=== PATIENT | female | born 1995 | race Caucasian/White ===

== ENCOUNTER 2017-11-25 22:30 | Inpatient (IN) | payer BC ==
[~2017-11-25] VITALS: Ht 182.9 cm; Wt 121.1 kg
[2017-11-25] MEDS: D5 LR IV SOLUTION 1,000 ML IV SCH (23:30)
[2017-11-26] VITALS (56 sets, daily range): BP systolic 109–181; BP diastolic 53–91
[2017-11-26] MEDS ORDERED: diphenhydrAMINE 25 MG TAB (BENADRYL) PO PRN
[2017-11-26 00:05] LABS: BASOPHILS % (AUTO) 0 % (0-10); EOSINOPHILS # (AUTO) 0.3 10^3/uL (0.0-0.3); EOSINOPHILS % (AUTO) 3 % (0-10); HEMATOCRIT 33 % (35-52); LYMPHOCYTES # (AUTO) 2.1 X 10^3 (1.0-4.0); LYMPHOCYTES % (AUTO) 20 % (12-44); MEAN CORPUSCULAR HEMOGLOBIN 31 PG (25-34); MEAN CORPUSCULAR HGB CONC 34 G/DL (32-36); MEAN CORPUSCULAR VOLUME 93 FL (80-99); MEAN PLATELET VOLUME 11.6 FL (7.4-10.4); MONOCYTES # (AUTO) 0.8 X 10^3 (0.0-1.0); MONOCYTES % (AUTO) 8 % (0-12); NEUTROPHILS # (AUTO) 7.5 X 10^3 (1.8-7.8); NEUTROPHILS % (AUTO) 70 % (42-75); PLATELET COUNT 133 10^3/uL (130-400); RED CELL DISTRIBUTION WIDTH 14.6 % (10.0-14.5); WHITE BLOOD COUNT 10.7 10^3/uL (4.3-11.0)
--- OUTSIDE RECORDS SUMMARY | 2017-11-26 00:15 | XMS REPORT | Continuity of Care Document ---
Author Author [facility] Organization [facility] Address Unknown Phone Unavailable Allergies There is no data. Medications There is no data. Problems Date Dx Coded Attending Type Code Diagnosis Diagnosed By 10/05/2014 JAMES DIAZ WELLNESS PROGRAM MANAGER Ot 625.9 10/05/2014 JAMES DIAZ WELLNESS PROGRAM MANAGER Ot 240.9 11/06/2015 Ot 620.2 11/06/2015 Ot 789.04 Procedures There is no data. Results Test Result Range Complete blood count (CBC) with automated white blood cell (WBC) differential - 11/25/17 23:50 Blood leukocytes automated count (number/volume) 10.7 10*3/uL 4.3-11.0 Blood erythrocytes automated count (number/volume) 3.50 10*6/uL 4.35-5.85 Venous blood hemoglobin measurement (mass/volume) 11.0 g/dL 11.5-16.0 Blood hematocrit (volume fraction) 33 % 35-52 Automated erythrocyte mean corpuscular volume 93 [foz_us] 80-99 Automated erythrocyte mean corpuscular hemoglobin (mass per erythrocyte) 31 pg 25-34 Automated erythrocyte mean corpuscular hemoglobin concentration measurement ( mass/volume) 34 g/dL 32-36 Automated erythrocyte distribution width ratio 14.6 % 10.0-14.5 Automated blood platelet count (count/volume) 133 10*3/uL 130-400 Automated blood platelet mean volume measurement 11.6 [foz_us] 7.4-10.4 Automated blood neutrophils/100 leukocytes 70 % 42-75 Automated blood lymphocytes/100 leukocytes 20 % 12-44 Blood monocytes/100 leukocytes 8 % 0-12 Automated blood eosinophils/100 leukocytes 3 % 0-10 Automated blood basophils/100 leukocytes 0 % 0-10 Blood neutrophils automated count (number/volume) 7.5 10*3 1.8-7.8 Blood lymphocytes automated count (number/volume) 2.1 10*3 1.0-4.0 Blood monocytes automated count (number/volume) 0.8 10*3 0.0-1.0 Automated eosinophil count 0.3 10*3/uL 0.0-0.3 Automated blood basophil count (count/volume) 0.0 10*3/uL 0.0-0.1 Encounters ACCT No. Visit Date/Time Discharge Status Pt. Type Provider Facility Loc./Unit Complaint [id number] 03/08/2014 09:53:00 03/08/2014 23:59:59 [facility] Outpatient JAMES DIAZ [facility] RAD [id number] 02/15/2014 15:21:00 02/15/2014 23:59:59 [facility] Outpatient JAMES DIAZ [facility] RAD [id number] 11/26/2017 00:07:00 Document Registration [id number] 10/24/2010 10:41:00 Document Registration
--- OUTSIDE RECORDS SUMMARY | 2017-11-26 00:15 | XMS REPORT ---
Author NANCY Ruggiero [employer] Address Unknown Phone Unavailable Care Team Providers Care Ammunition Assembly I Laborer Name Role Phone NANCY CARR CP Unavailable Allergies, Adverse Reactions, Alerts Substance Reaction Event Type N.K.D.A. Info Not Available Non Drug Allergy Problems Problem Type Condition Code Onset Dates Condition Status Assessment Contraceptive, surveillance, intrauterine device Z30.431 Active Medications Medication Code System Code Instructions Start Date End Date Status Dosage Mirena [facility] [id number] 20 MCG/24HR Intrauterine Aug 14, 2015 as directed Procedures Procedure Coding System Code Date Office Visit, Est Pt., Level 3 CPT-4 94570 Sep 12, 2015 Vital Signs Date/Time: Sep 12, 2015 Temperature 98.0 F Weight 230.0 lbs Height 72.5 in BMI 30.76 Index Cardiac Monitoring Heart Rate 78 bpm Results No Known Results Summary Purpose eClinicalWorks Submission
--- OUTSIDE RECORDS SUMMARY | 2017-11-26 00:15 | XMS REPORT ---
Author NANCY Ruggiero [employer] Address Unknown Phone Unavailable Care Team Providers Care Electrical Logger Name Role Phone NANCY CARR CP Unavailable Allergies, Adverse Reactions, Alerts Substance Reaction Event Type N.K.D.A. Info Not Available Non Drug Allergy Problems Problem Type Condition Code Onset Dates Condition Status Assessment Encounter for IUD insertion Z30.430 Active Assessment Counseling for control regarding intrauterine device (IUD) Z30.9 Active Medications Medication Code System Code Instructions Start Date End Date Status Dosage Mirena [facility] [id number] 20 MCG/24HR Intrauterine Aug 14, 2015 as directed Procedures Procedure Coding System Code Date INSERT INTRAUTERINE DEVICE CPT-4 84412 Aug 14, 2015 URINE TEST CPT-4 54086 Aug 14, 2015 Vital Signs Date/Time: Aug 14, 2015 Temperature 97.8 F Weight 225.9 lbs Height 72.5 in BMI 30.21 Index Blood Pressure Diastolic 88 mmHg Blood Pressure Systolic 138 mmHg Cardiac Monitoring Heart Rate 78 bpm Results Name Result Date Reference Range Unit Abnormality Flag TEST, URINE (IN HOUSE) Summary Purpose eClinicalWorks Submission
[2017-11-26] MEDS ORDERED: OXYTOCIN/NORMAL SALINE 500 ML IV SCH ×3 (04:00→07:44)
[2017-11-26] MEDS ORDERED: SUFENTA 0.6MCG/ML BUPIVA 0.125 100 ML ONE (05:26)
[2017-11-26] MEDS: D5 LR IV SOLUTION 1,000 ML IV SCH (05:40)
[2017-11-26] MEDS ORDERED: CATHETER FLUSH 10 ML SYR IV SCH (06:00)
[2017-11-26] MEDS ORDERED: ONDANSETRON 4 MG/2 ML (SDV) Z0FRAN ONE (06:07)
[2017-11-26] MEDS ORDERED: METOCLOPRAMIDE INJ 10 MG/2 ML (REGLAN) IV PRN (06:45)
[2017-11-26] MEDS ORDERED: diphenhydrAMINE 50 MG/ML INJ (BENADRYL) IV PRN (06:45)
[2017-11-26] MEDS ORDERED: NALOXONE 0.4 MG/ML 1 ML (NARCAN) VIAL IV PRN ×3 (06:45→07:15)
[2017-11-26] MEDS ORDERED: EPIDURAL (SUFENTA 0.6MCG/ML BUPIVA 0.125%) 100 ML BAG EPI SCH ×2 (06:45→07:15)
[2017-11-26] MEDS ORDERED: LACTATED RINGERS 1,000 ML IV SCH (06:45)
[2017-11-26] MEDS ORDERED: ONDANSETRON 4 MG/2 ML (SDV) Z0FRAN IV PRN (06:45)
[2017-11-26] MEDS ORDERED: LACTATED RINGERS 1,000 ML IV ONE (07:01)
[2017-11-26] MEDS ORDERED: LIDOCAINE PF 2% 5 ML (XYLOCAINE) VIAL ONE (07:37)
[2017-11-26] MEDS ORDERED: D5 LR IV SOLUTION 1,000 ML IV SCH (07:43)
[2017-11-26] MEDS ORDERED: ONDANSETRON 4 MG/2 ML (SDV) Z0FRAN IVP PRN (07:45)
[2017-11-26] MEDS ORDERED: TETANUS,DIPTH,PERTUSS P/F (BOOSTRIX) 0.5 ML VIAL IM ONE (07:45)
[2017-11-26] MEDS ORDERED: oxyCODONE/APAP 10/325MG (PERCOCET 10) TABLET PO PRN (07:45)
[2017-11-26] MEDS ORDERED: MEASLES,MUMPS,RUBELLA 1 EA INJ SC ONE (07:45)
[2017-11-26] MEDS ORDERED: KETOROLAC 30 MG/ML VIAL IV SCH (07:45)
[2017-11-26] MEDS ORDERED: BENZOCAINE/MENTHOL (DERMOPLAST) 56 ML CAN TP PRN (07:45)
[2017-11-26] MEDS ORDERED: LIDOCAINE/EPI 2% 1:200,00 (XYLOCAINE) 10 ML VIAL ONE (08:50)
[2017-11-26] MEDS ORDERED: MINERAL OIL CONCENTRATE 99.9% 15 ML UDC ONE (08:50)
[2017-11-26] MEDS ORDERED: IBUPROFEN 800 MG (MOTRIN) TAB PO ONE ×2 (16:14→21:41)
[2017-11-26] MEDS: IBUPROFEN 800 MG (MOTRIN) TAB PO SCH ×2 (16:17→21:45)
[2017-11-26] MEDS: DOCUSATE SODIUM 100 MG (COLACE) CAP PO SCH (21:06)
[2017-11-27 00:15] VITALS: BP 104/56
--- NOTE | 2017-11-27 00:17 | OPERATIVE REPORT ---
DATE OF SERVICE: 11/26/2017 DELIVERY NOTE The patient delivered by term spontaneous vaginal delivery a viable male with Apgars of 8 and 9 at 1 and 5 minutes respectively, weight of 7 pounds and 8 ounces. Cord blood gas of 7.32 and a time of 0909. The infant was delivered over midline episiotomy that was performed when the baby was pushed to the perineum trying to crown and mom could not expel the baby after several pushes. At that point, she requested episiotomy which was performed and the patient delivered with the next push. The infant was bulb suctioned on delivery of the head and again on completion of delivery. The umbilical cord was doubly clamped, father cut the cord, the baby was passed to mom's abdomen. The placenta delivered spontaneously Pierre. There was approximately 5 to 10% area of overt abruption. I think this probably explains her relatively rapid labor and her pain that was mostly refractory to the epidural. The cervix, vagina, rectum and perineum were examined and found intact except for the midline episiotomy, which was repaired with a single suture of 3-0 Vicryl Rapide in the usual manner. The patient tolerated the delivery and the repair well and remained in the LDR for recovery. The baby remained with the mom. Sponge and needle counts were correct on completion of delivery and the repair. Estimated blood loss was around 300 mL. Job ID: [id number] DocumentID: [id number] Dictated Date: 11/26/2017 14:34:14 Field Insurance Sales Manager Date: 11/27/2017 00:17:13 Dictated By: JOHN CAMACHO MD
[2017-11-27] MEDS: IBUPROFEN 800 MG (MOTRIN) TAB PO SCH ×2 (05:03→12:49)
[2017-11-27 07:43] VITALS: BP 117/80
[2017-11-27] MEDS: DOCUSATE SODIUM 100 MG (COLACE) CAP PO SCH (07:45)
--- NOTE | 2017-11-27 08:12 | Progress Note-Standard ---
Standard Progress Note Progress Notes/Assess & Plan Date Seen by Provider: Nov 27, 2017 Time Seen by Provider: 08:10 Progress/Assessment & Plan this patient is without complaint. She is ambulating, voiding, tolerating by mouth, and has good pain control. Vital Signs Date Time Temp Pulse Resp B/P (MAP) Pulse Ox O2 Delivery O2 Flow Rate FiO2 11/27/17 07:43 97.8 96 16 117/80 (92) 97 Room Air 11/27/17 00:15 97.5 88 14 104/56 (72) 97 Room Air 11/26/17 20:35 97.7 99 16 127/76 (93) 99 Room Air 11/26/17 15:55 99.2 112 18 132/80 (97) 99 Room Air 11/26/17 11:15 96 20 110/66 (81) Room Air 11/26/17 11:00 88 20 147/86 (106) Room Air 11/26/17 10:45 107 20 114/59 (77) Room Air 11/26/17 10:30 96 20 150/66 (94) Room Air 11/26/17 10:06 96 20 126/81 (96) Room Air 11/26/17 09:45 102 20 164/60 (94) Room Air 11/26/17 09:29 99 20 109/53 (71) Room Air 11/26/17 09:23 99 20 135/63 (87) Room Air 11/26/17 09:20 91 20 128/62 (84) Room Air 11/26/17 09:17 94 20 127/66 (86) Room Air 11/26/17 09:14 112 20 132/71 (91) Room Air 11/26/17 08:55 100 20 146/75 (98) Room Air 11/26/17 08:40 77 20 157/80 (105) Room Air 11/26/17 08:25 116 20 181/71 (107) 99 Room Air I & O 11/27/17 07:00 Intake Total 950 ml Balance 950 ml vital signs are stable. Patient is afebrile. Fundus is firm below the umbilicus and nontender. Extremities show no clubbing or cyanosis. There is no Homans sign. Assessment and plan day number 1 status post term spontaneous vaginal delivery doing well. Plan is for routine convalescence care and discharge home today or tomorrow as patient desires Final Diagnosis term spontaneous vaginal delivery JOHN CAMACHO MD Nov 27, 2017 8:12 am
[2017-11-27] MEDS ORDERED: IBUP-1780 PO (08:13)
[2017-11-27] MEDS ORDERED: OXYC-465 PO (08:13)
[2017-11-27] MEDS ORDERED: DOCU100C37 PO (08:13)
--- NOTE | 2017-11-27 08:14 | Discharge Instructions ---
Discharge Instructions Discharge Medications New, Converted or Re-Newed RX: RX on Chart Patient Instructions Patient Instructions: as directed Return to The Hospital For: as directed Activity & Diet Discharge Diet: No Restrictions Activity as Tolerated: No Orders-Post D/C & Referrals Follow Up Appt: Call to make follow up appt. for patient in 4 weeks. Activity Per routine post vaginal delivery instructions. Diet as tolerated Patient may shower or tub bathe as desired. JOHN CAMACHO MD Nov 27, 2017 8:14 am
--- NOTE | 2017-11-28 10:36 | Anesthesia-Regional Post-Op ---
Regional Patient Condition Mental Status: Alert, Oriented x3 Circulation: Same as Pre-Op Headache: Absent Sensation: Full Recovery Motor Block: Absent Post Op Complications Complications None Follow Up Care/Instructions Patient Instructions None needed. Anesthesia/Patient Condition Patient is doing well, no complaints, stable vital signs, no apparent adverse anesthesia problems. No complications reported per nursing. D/C home per [facility] Criteria: Yes MARCELLA LEPE CRNA Nov 28, 2017 10:36
== END 2017-11-27 13:30 | disposition home or self-care (01) | DRG 774 ==
LOC: LDRP 22:30 → WSo 22:30 → LDRP 23:50 → WSo 23:50 → LDRP 11-26 13:30
PROVIDERS: ADMIT Obstetrics & Gynecology; ATTEND Obstetrics & Gynecology
PROC: 10E0XZZ Delivery of Products of Conception, External Approach (ICD-10-PCS; principal; 2017-11-26)
PROC: 0W8NXZZ Division of Female Perineum, External Approach (ICD-10-PCS; 2017-11-26)
DX: O45.93 Premature separation of placenta, unspecified, third trimester (principal); Z37.0 Single live birth; Z3A.37 37 weeks gestation of pregnancy
CPT/HCPCS: 36415; 85025; 86850; 86900; 86901; 99212

== ENCOUNTER 2018-12-15 05:48 | Outpatient (CLI) | payer BC ==
[~2018-12-15] VITALS: Ht 182.9 cm; Wt 103.4 kg
[~2018-12-15 05:48] MED LIST: DOCU100C37 PO; IBUP-1780 PO; OXYC-465 PO
[2018-12-15] MEDS ORDERED: FLUO20CA42 PO (13:49)
[2018-12-15] MEDS ORDERED: NORG1TAB14 PO (13:49)
== END 2018-12-15 13:52 ==
LOC: PREOP 05:48
PROVIDERS: ATTEND Obstetrics & Gynecology
DX: Z01.818 Encounter for other preprocedural examination (principal)

== ENCOUNTER 2018-12-21 11:10 | Day surgery (SDC) | payer BC, OTHER ==
[~2018-12-21] VITALS: Ht 182.9 cm; Wt 103.4 kg
[~2018-12-21 11:10] MED LIST changes: +FLUO20CA42 PO; +NORG1TAB14 PO
[2018-12-21 11:20] VITALS: BP 126/77
[2018-12-21] MEDS ORDERED: LACTATED RINGERS 1,000 ML IV PRN (11:24)
[2018-12-21] MEDS ORDERED: ceFAZolin INJECTION 1,000 MG in WATER (STERILE) FOR INJECTION 10 ML IV ONE (11:30)
[2018-12-21] MEDS ORDERED: ONDANSETRON 4 MG/2 ML (SDV) Z0FRAN ONE (11:55)
[2018-12-21] MEDS ORDERED: MIDAZOLAM 2 MG/2 ML (VERSED) VIAL ONE (11:55)
[2018-12-21] MEDS ORDERED: SEVOFLURANE (ULTANE) 15 ML INHAL SOLN ONE (11:55)
[2018-12-21] MEDS ORDERED: LIDOCAINE PF 2% 5 ML (XYLOCAINE) VIAL ONE (11:55)
[2018-12-21] MEDS ORDERED: DEXAMETHASONE 10 MG/ML (DECADRON) 1 ML VIAL ONE (11:55)
[2018-12-21] MEDS ORDERED: fentaNYL INJECTION 100 MCG/2 ML AMP ONE (11:55)
[2018-12-21] MEDS ORDERED: proPOfol 200 MG/20 ML (DIPRIVAN) VIAL IV ONE ×2 (11:55→13:14)
--- NOTE | 2018-12-21 12:29 | Progress Note-Pre Operative ---
Pre-Operative Progress Note H&P Reviewed The H&P was reviewed, patient examined and no changes noted. Date Seen by Provider: Dec 21, 2018 Time Seen by Provider: 12: Date H&P Reviewed: Dec 21, 2018 Time H&P Reviewed: 12:29 Pre-Operative Diagnosis: DUB/menorrhagia/intrauterine mass JOHN CAMACHO MD Dec 21, 2018 12:29
[2018-12-21] MEDS ORDERED: MEPERIDINE (DEMEROL) INJ 100 MG/ML IM ONE (12:30)
[2018-12-21] MEDS ORDERED: ONDANSETRON 4 MG/2 ML (SDV) Z0FRAN IVP PRN ×2 (12:30→14:00)
[2018-12-21] MEDS ORDERED: D5 LR IV SOLUTION 1,000 ML IV SCH (12:30)
[2018-12-21] MEDS ORDERED: oxyCODONE/APAP 5/325MG (PERCOCET 5) TABLET PO PRN (12:30)
[2018-12-21] MEDS ORDERED: KETOROLAC 30 MG/ML VIAL IVP ONE (12:30)
[2018-12-21] MEDS ORDERED: PROMETHAZINE INJ 25 MG/ML (PHENERGAN) AMP IM ONE (12:30)
[2018-12-21] MEDS ORDERED: ESTROGENS CONJ IV 25 MG/5 ML (PREMARIN) VIAL IVP ONE (12:30)
--- NOTE | 2018-12-21 12:30 | Progress Note-Post Operative ---
Post-Operative Progess Note Surgeon (s)/Oil Well Directional Surveyor (s) Surgeon JOHN CAMACHO MD Oil Well Directional Surveyor: None Pre-Operative Diagnosis DUB/menorrhagia/intrauterine mass Post-Operative Diagnosis Same with pathology pending Procedure & Operative Findings Date of Procedure 12/21/18 Procedure Performed/Findings Hysteroscopy with directed biopsy and D&C Anesthesia Type GETA Estimated Blood Loss Estimated blood loss (mL): Minimal Specimens/Packing Specimens Removed Directed biopsy and endometrial curettings Packing: None required JOHN CAMACHO MD Dec 21, 2018 12:30
[2018-12-21] MEDS ORDERED: OXYC1TAB87 PO (12:32)
--- NOTE | 2018-12-21 12:34 | Discharge Instructions ---
Discharge Instructions Discharge Medications New, Converted or Re-Newed RX: RX on Chart Patient Instructions Patient Instructions: As directed Return to The Hospital For: As directed Activity & Diet Discharge Diet: No Restrictions Activity as Tolerated: No Orders-Post D/C & Referrals Follow Up Appt: Call to make follow up appt. for patient in 2 weeks. Activity as tolerated. Diet: As tolerated-Clear Liquids only if nauseated. shower or tub bathe as desired. No driving for 24 hours, no alcoholic beverages for 24 hours, and nothing per vagina (no tampons, douching, or intercoUrse) for 2 weeks. Patient to return to the clinic as soon as possible for: Temperature greater than 101F, Severe Pain, Foul discharge from incision or vagina, Excessive Bleeding (more than a period). JOHN CAMACHO MD Dec 21, 2018 12:34
[2018-12-21] MEDS ORDERED: WATER (STERILE) FOR INJECTION 0 ML ONE (12:47)
[2018-12-21] MEDS ORDERED: KETOROLAC 30 MG/ML VIAL ONE (12:47)
[2018-12-21] MEDS ORDERED: ESTROGENS CONJ IV 25 MG/5 ML (PREMARIN) VIAL ONE (12:47)
[2018-12-21] MEDS ORDERED: morphine INJ 10 MG/ML 1ML (SYR OR VIAL) ONE (13:22)
[2018-12-21 13:56] VITALS: BP 103/73
[2018-12-21] MEDS ORDERED: morphine INJ 10 MG/ML 1ML (SYR OR VIAL) IVP ONE (14:00)
[2018-12-21 14:30] VITALS: BP 110/73
--- NOTE | 2018-12-21 14:45 | Anesthesia-General Post-Op ---
General Patient Condition Mental Status/LOC: Same as Preop Cardiovascular: Satisfactory Nausea/Vomiting: Absent Respiratory: Satisfactory Pain: Controlled Complications: Absent Post Op Complications Complications None Follow Up Care/Instructions Patient Instructions None needed. Anesthesia/Patient Condition Patient Condition Patient is doing well, no complaints, stable vital signs, no apparent adverse anesthesia problems. No complications reported per nursing. JILLIAN EARLY CRNA Dec 21, 2018 14:45
[2018-12-21 15:00] VITALS: BP 110/64
--- NOTE | 2018-12-21 15:05 | NUR ---
HAS BEEN RESTING QUIETLY IN BED THROUGHOUT RECOVERY WITH SCANT AMOUNT OF BLOODY DRAINAGE TO V-PAD. WAS UP TO BR WITH ASSIST, VOIDED, GAIT STEADY. RATES CRAMPY PELVIC DISCOMFORT 2. ALERT, STATES SHE IS READY FOR DISMISSAL.
[2018-12-21 15:23] VITALS: BP 110/64
--- NOTE | 2018-12-21 17:41 | OPERATIVE REPORT ---
DATE OF SERVICE: 12/21/2018 PREOPERATIVE DIAGNOSES: Dysfunctional uterine bleeding, menorrhagia and intrauterine mass on ultrasound. POSTOPERATIVE DIAGNOSES: Dysfunctional uterine bleeding, menorrhagia and intrauterine mass on ultrasound with likely endometrial polyp. OPERATIVE PROCEDURE: Hysteroscopy with directed biopsy and D and C. OPERATIVE DESCRIPTION: With the patient in supine position under satisfactory general anesthesia, she was repositioned in the dorsal lithotomy position in the [facility] stirrups and prepped and draped in the usual fashion for vaginal surgery. Weighted speculum was placed in posterior fornix of vagina, cervix exposed and grasped anteriorly with single-tooth tenaculum. Uterus was sounded to 9.5 cm with uterine sound. The cervix was then serially dilated with Nils dilators to accommodate a hysteroscope, which was introduced and using LR as a distending medium, the endometrial cavity was examined. There was a polypoid fragment of tissue protruding from the posterior uterine cavity wall. That was biopsied directly off and sent to pathology for permanent section. There was a pale lesion at the fundus of the endometrial cavity. This was biopsied directly as well and sent to pathology for permanent section. This had the clinical appearance of possibly a submucosal fibroid. Both tubal ostia were seen and were normal. The hysteroscope was removed. The endometrial cavity was sharply curettaged in all 4 quadrants to good uterine cry. That tissue was sent to pathology separately for permanent section. The hysteroscope was reintroduced, endometrial cavity was examined. There was no significant bleeding. There was no remaining abnormal pathology. The cervical canal was examined as the hysteroscope was removed and it was normal in appearance as well. Sponge and needle counts were correct on completion of the procedure. Estimated blood loss for the procedure was minimal. The patient tolerated the procedure well and was uneventfully awakened from general anesthesia and transferred to recovery room in stable condition with plans for discharge home PAR. The tenaculum had been removed from the cervix. Again, there was no bleeding from those puncture sites. Job ID: [id number] DocumentID: [id number] Dictated Date: 12/21/2018 13:00:05 Emergency Veterinary Technician Date: 12/21/2018 17:40:46 Dictated By: JOHN CAMACHO MD
== END 2018-12-21 15:23 | disposition home or self-care (01) ==
LOC: SDC 11:10
PROVIDERS: ATTEND Obstetrics & Gynecology
DX: N92.0 Excessive and frequent menstruation with regular cycle (principal); Z11.2 Encounter for screening for other bacterial diseases; K21.9 Gastro-esophageal reflux disease without esophagitis; F32.9 Major depressive disorder, single episode, unspecified; Z79.899 Other long term (current) drug therapy
CPT/HCPCS: 84703; 87081

== ENCOUNTER → 2021-12-01 | Outpatient (CLI) | payer OTHER ==
[~2021-12-01] MED LIST changes: -OXYC-465 PO; +OXYC-556 PO; +OXYC1TAB87 PO
--- NOTE | 2021-12-01 15:34 | Diagnostic Imaging Report ---
INDICATION: anatomy survey TECHNIQUE: Multiple Real-time grayscale images were obtained over the gravid uterus. COMPARISON: None. FINDINGS: There is a single live intrauterine in breech position. The cervix measures 5.1 cm. The placenta is posterior in location and there is no evidence of previa or placental abruption. The amount of amniotic fluid appears visually appropriate. anatomy survey was performed and the following structures are visualized and normal: stomach, four-chamber heart, kidneys, urinary bladder, umbilical cord insertion, cerebellum/cisterna magna, cerebral ventricles, and spine. Due to advanced gestational age, the maternal adnexa are suboptimally evaluated. Biometrical measurements are as follows: Biparietal 7.50 cm, age 30 weeks 1 days. Head circumference 29.92 cm, age 33 weeks 2 days. Abdominal circumference 24.94 cm, age 29 weeks 2 days. Femur length 5.88 cm, age 30 weeks 5 days. Sonographic estimate age: 30 weeks 6 days. Sonographic estimated date of delivery: 02/03/2022. Estimated Weight: 1513 gm (+/- 221 gm). LMP percentile: 68%. heart rate: 146 beats per minute. number: 1 of 1. IMPRESSION: Single live intrauterine has normal anatomy survey. Dictated by: Dictated on workstation # [id number]
== END ==
LOC: RAD 12:45
PROVIDERS: ATTEND Nurse Practitioner Women's Health
DX: Z34.83 Encounter for supervision of other normal pregnancy, third trimester (principal); Z3A.30 30 weeks gestation of pregnancy
CPT/HCPCS: 76805

== ENCOUNTER → 2022-01-06 | Outpatient (CLI) | payer OTHER ==
[2022-01-06 10:50] LABS: URINE CREATININE FOR RATIO 49 MG/DL (30-125); URINE PROTEIN FOR RATIO ONLY < 6 MG/DL (6-12)
== END ==
LOC: LABNPT 10:29
PROVIDERS: ATTEND Obstetrics & Gynecology
DX: O14.93 Unspecified pre-eclampsia, third trimester (principal)
CPT/HCPCS: 82570; 84156

== ENCOUNTER 2022-01-15 11:11 | Outpatient (CLI) | payer OTHER ==
[~2022-01-15] VITALS: Ht 182.9 cm; Wt 135.6 kg
[2022-01-15 11:21] VITALS: BP 140/88
[2022-01-15 11:34] VITALS: BP 144/76
--- NOTE | 2022-01-16 08:08 | Physician Query-Final Dx ---
KATLIN,01/16/22 0807: Clinic Account Progress/Dx Physician Query: Please give diagnosis Please include # weeks gestation Date of Service Jan 15, 2022 at 11:11 JOHN CAMACHO MD 01/16/22 1314: Clinic Account Progress/Dx DIAGNOSIS: Diagnosis 35 weeks with false labor ,OctJan 16, 2022 08:07 JOHN CAMACHO MD Jan 16, 2022 13:14
== END 2022-01-15 12:17 ==
LOC: LDRP 11:11 → WSo 11:11
PROVIDERS: ATTEND Obstetrics & Gynecology
DX: O47.03 False labor before 37 completed weeks of gestation, third trimester (principal); Z3A.35 35 weeks gestation of pregnancy
CPT/HCPCS: 99213

== ENCOUNTER 2022-01-19 08:57 | Outpatient (CLI) | payer OTHER ==
[~2022-01-19] VITALS: Ht 182.9 cm; Wt 135.2 kg
[2022-01-19 08:56] VITALS: BP 130/75
[2022-01-19 09:00] VITALS: BP 130/75
[2022-01-19] MEDS ORDERED: LOPERAMIDE 2 MG (IMODIUM) TABLET PO ONE (09:15)
[2022-01-19] MEDS ORDERED: ONDANSETRON 4 MG/2 ML (SDV) Z0FRAN IVP ONE (09:15)
[2022-01-19] MEDS ORDERED: D5 LR IV SOLUTION 1,000 ML IV SCH (09:15)
[2022-01-19 09:20] VITALS: BP 119/67
[2022-01-19 09:40] LABS: BILIRUBIN,URINE NEGATIVE (NEGATIVE); CLARITY,URINE SL CLOUDY; COLOR,URINE YELLOW; GLUCOSE, URINE (UA) NEGATIVE (NEGATIVE); KETONES,URINE NEGATIVE (NEGATIVE); LEUKOCYTE ESTERASE ,URINE 2+ (NEGATIVE); NITRITE,URINE NEGATIVE (NEGATIVE); PROTEIN,URINE NEGATIVE (NEGATIVE)
[2022-01-19 09:46] VITALS: BP 130/75
[2022-01-19] MEDS ORDERED: PREN1TAB79 PO (09:49)
[2022-01-19] MEDS ORDERED: LEVO25TA80 PO (09:49)
[2022-01-19 09:50] LABS: BASOPHILS % (AUTO) 0 % (0-10); EOSINOPHILS # (AUTO) 0.1 10^3/uL (0.0-0.3); EOSINOPHILS % (AUTO) 1 % (0-10); HEMATOCRIT 33 % (35-52); HEMOGLOBIN 10.6 g/dL (11.5-16.0); LYMPHOCYTES # (AUTO) 1.4 10^3/uL (1.0-4.0); LYMPHOCYTES % (AUTO) 18 % (12-44); MEAN CORPUSCULAR HEMOGLOBIN 31 pg (25-34); MEAN CORPUSCULAR HGB CONC 32 g/dL (32-36); MEAN CORPUSCULAR VOLUME 95 fL (80-99); MEAN PLATELET VOLUME 11.6 fL (9.0-12.2); MONOCYTES # (AUTO) 0.5 10^3/uL (0.0-1.0); MONOCYTES % (AUTO) 6 % (0-12); NEUTROPHILS # (AUTO) 5.8 10^3/uL (1.8-7.8); NEUTROPHILS % (AUTO) 73 % (42-75); PLATELET COUNT 146 10^3/uL (130-400); WHITE BLOOD COUNT 7.9 10^3/uL (4.3-11.0)
[2022-01-19 10:04] LABS: BACTERIA,URINE FEW /HPF; WBC,URINE 0-2 /HPF
[2022-01-19 10:12] LABS: ALBUMIN 3.1 GM/DL (3.2-4.5); BILIRUBIN,TOTAL 0.4 MG/DL (0.1-1.0); CALCIUM 8.3 MG/DL (8.5-10.1); CREATININE SERUM 0.62 MG/DL (0.60-1.30); POTASSIUM 3.8 MMOL/L (3.6-5.0)
[2022-01-19 12:18] VITALS: BP 130/75
--- NOTE | 2022-01-20 07:58 | Physician Query-Final Dx ---
01/20/22 0758: Clinic Account Progress/Dx Physician Query: Please give diagnosis Please include # weeks gestation Date of Service Jan 19, 2022 at 08:57 JOHN CAMACHO MD 01/20/22 0826: Clinic Account Progress/Dx DIAGNOSIS: Diagnosis False labor at 35 weeks gestation Jan 20, 2022 07:58 JOHN CAMACHO MD Jan 20, 2022 08:26
== END 2022-01-19 12:18 | disposition home or self-care (01) ==
LOC: LDRP 08:57 → WSo 08:57
PROVIDERS: ATTEND Obstetrics & Gynecology
DX: O47.03 False labor before 37 completed weeks of gestation, third trimester (principal); Z3A.35 35 weeks gestation of pregnancy
CPT/HCPCS: 80053; 81000; 85025; 96361; 96374; G0463; 36415; 99213

== ENCOUNTER 2022-01-21 11:20 | Outpatient (CLI) | payer OTHER ==
[~2022-01-21] VITALS: Ht 182.9 cm; Wt 134.0 kg
[~2022-01-21 11:20] MED LIST changes: +LEVO25TA80 PO; +PREN1TAB79 PO
[2022-01-21] MEDS ORDERED: RT-ALBUINH IH (12:39)
[2022-01-21] MEDS ORDERED: SERT50TA2 PO (12:39)
== END 2022-01-22 07:37 ==
LOC: PREOP 11:20
PROVIDERS: ATTEND Obstetrics & Gynecology
DX: Z01.818 Encounter for other preprocedural examination (principal)